=== PATIENT | male | born 1960 | race Caucasian/White ===

== ENCOUNTER → 2022-04-20 | Outpatient (CLI) | payer OTHER ==
[~2022-04-20] MED LIST: COZAAR50 MG PO; LOPRESSOR 25 MG25 MG PO; SIMVASTATIN20 MG PO
[2022-04-20 14:57] LABS: HEMOGLOBIN 14.4 gm/dl (14.0-17.5); RED BLOOD COUNT 4.94 M/UL (4.20-5.50); WHITE BLOOD COUNT 11.1 K/UL (4.5-11.0)
[2022-04-20 15:30] LABS: BUN/CREATININE RATIO 11 (0-10)
[2022-04-21 09:18] LABS: VITAMIN D, 25-HYDROXY 20.8 ng/mL (30.0-100.0)
== END ==
LOC: LAB 14:19
PROVIDERS: Nurse Practitioner Family
DX: E78.5 Hyperlipidemia, unspecified (principal); N40.0 Benign prostatic hyperplasia without lower urinary tract symptoms; E53.8 Deficiency of other specified B group vitamins; E55.9 Vitamin D deficiency, unspecified; N52.9 Male erectile dysfunction, unspecified
CPT/HCPCS: 36415; 80053; 80061; 82607; 84153; 84402; 84403; 84439; 84443; 85025